=== PATIENT | female | born 1960 | race Caucasian/White ===

== ENCOUNTER 2021-12-29 08:12 | Outpatient (CLI) | payer OTHER, SELFPAY ==
--- NOTE | 2021-12-29 08:30 | CRLHL7_ITS ---
For Patients: As a result of the Cures Act, medical imaging exams and procedure reports are released immediately into your electronic medical record. You may view this report before your referring provider. If you have questions, please contact your health care provider. [facility] ??? [facility] MYOCARDIAL PERFUSION SCAN, 12/29/2021 CLINICAL HISTORY: 61-year-old female. History of coronary artery disease. Non-ST elevation myocardial infarction [place] in 2020. Percutaneous coronary intervention. Chest pain. Hyperlipidemia. Remote smoking history. Height: 5 feet 5 inches. Weight: 154 pounds. TECHNIQUE: (Resting SPECT and Stress Gated SPECT with wall motion and ejection fraction) Stress: Pharmacologic - Regadenoson (0.4 mg) (walking protocol) (IV) Dose (Stress/Rest): 32.6 mCi / 8.72 mCi Tc-99m Sestamibi Comparison: None FINDINGS: There is good uptake of activity by the left ventricle. No left ventricular enlargement is noted. End diastolic volume: 61 mL. End systolic volume: 11 mL. There is mild motion artifact on stress and rest images. Mild soft tissue attenuation. No other significant fixed or reversible defects are identified. Gated images demonstrate a normal left ventricular ejection fraction of greater than 70 percent. No regional wall motion abnormalities are identified. IMPRESSION: 1) No evidence of significant myocardial ischemia or infarction. 2) Normal left ventricular ejection fraction of greater than 70 percent. This study was jointly reviewed by radiology and cardiology. RICHARD PENA M.D. Diagnostic/Nuclear Medicine Radiologist [employer] [email or web address] M.D. Department of Cardiology silverio/Dictated by: Richard Pena MD @ 12/29/2021 11:09:00 AM (Electronically Signed)
--- NOTE | 2021-12-29 08:57 | PM.ST ---
Stress Test Note Date Time Seen by Provider: 10:00 Date Seen: 12/29/21 Date of test: 12/29/21 Providers Referring provider: Suha Klein Primary care provider: Suha Klein Stress test physician: Brook W[place] Stress Test Note Stress test ordered: Elisa Indication for test: Chest pain. Patient's cardiac stress test medical history reviewed. Stress test medicine: Lexiscan Results discussion: Resting EKG: Sinus bradycardia, 57 beats per minute, no acute changes. Resting blood pressure: 117/74 Stress test: Patient did a walk seen Lexiscan. With the infusion of the regadenastron she had some flushing, did feel a sense of her heart pounding but no chest pain. She completed the 4 minute exercise and then was recovered. There was no arrhythmia. There was none diagnostic mild downsloping but not diagnostic in V5 and V6, possibly inferior leads 2 and 3 as well, but definitely not meeting diagnostic criteria. We will await the nuclear medicine images to couple this for a full formal diagnostic. Note patient was completely asymptomatic. Did review with her that EKGs alone can have significant false positives and can be fraught with air in stress testing for women particularly, this is why there coupled with the imaging tests. Impression: Equivocal EKG portion of the stress test. Follow up suggested: Patient will await to hear her about the diagnostic images to couple this for a full formal report. She is discharged from the stress testing in stable condition. She will have her post exercise images obtained and then will be allowed to go home from there.
[2021-12-29] MEDS: REGADENOSON 0.4 MG/5 ML SYRINGE IVP (12:09)
[2021-12-29] MEDS: SODIUM CHLORIDE 0.9 % (FLUSH) 10 ML SYRINGE IVF (12:11)
[2021-12-29 12:21] VITALS: BP 110/72; PULSE 75
== END 2021-12-29 08:13 | disposition home or self-care (01) ==
LOC: STRESS 08:14
PROVIDERS: PCP Family Medicine; Visit Provider Family Medicine
DX: R07.89 Other chest pain (principal)
CPT/HCPCS: 78452; 93016; 93017; A9500; J2785